=== PATIENT | male | born 1975 | race Two or more races ===

== ENCOUNTER 2023-08-18 18:38 | Emergency (ER) | payer SELFPAY ==
[~2023-08-18] VITALS: Ht 177.8 cm; Wt 97.2 kg
[2023-08-18] MEDS ORDERED: OMNIPAQUE 12mg/ml 500ml ORAL SOLUTION PO ONE (19:27)
[2023-08-18 19:38] LABS: Basophils # (auto) 0 10 ^3/uL (0-0.2); Basophils % (auto) 0.5 % (0.0-2.0); Eosinophils # (auto) 0.2 10 ^3/uL (0-0.8); Hematocrit 46.5 % (41.0-53.0); Hemoglobin 16.5 g/dL (13.5-17.5); Lymphocytes # (auto) 3.9 10 ^3/uL (0.4-5.4); Lymphocytes % (auto) 50.4 % (10.0-50.0); Mean Corpuscular Hemoglobin 33.9 pg (28.0-32.0); Mean Corpuscular Hgb Conc. 35.5 g/dL (32.0-36.0); Mean Corpuscular Volume 95.6 fL (80.0-100.0); Monocytes # (auto) 0.4 10 ^3/uL (0-1.3); Monocytes % (auto) 5.5 % (0.0-12.0); Neutrophils # (auto) 3.2 10 ^3/uL (1.6-8.6); Neutrophils % (auto) 41.6 % (37.0-80.0); Nucleated Red Blood Cells % 0.2 %; Red Blood Cells 4.86 10^6/uL (4.5-5.90); Red Cell Distribution Width 13.1 % (11.8-14.3); White Blood Cell 7.8 10^3/uL (4.4-10.8)
[2023-08-18 19:39] LABS: Urine Bacteria NONE SEEN /hpf (None Seen); Urine Blood TRACE /uL (Negative); Urine Clarity Clear (Clear); Urine Color Colorless (Yellow); Urine Protein, UAD Negative (Negative); Urine Specific Gravity 1.022 (1.001-1.035); Urine Urobilinogen Normal (Negative); Urine WBC <1 /hpf (0 - 3); Urine pH 5.5 (5.0-8.0)
[2023-08-18 19:44] LABS: Alanine Aminotransferase 53 U/L (7-40); Albumin 4.7 g/dL (3.2-4.8); Alkaline Phosphatase 74 U/L (46-116); Anion Gap 5 (5-15); Aspartate Aminotransferase 26 U/L (13-40); BUN/Creatinine Ratio 15.1 (10.0-20.0); Bilirubin, Total 0.5 mg/dL (0.2-1.0); Blood Urea Nitrogen 16 mg/dL (9-23); Calcium 9.3 mg/dL (8.7-10.4); Carbon Dioxide 29 mmol/L (20-30); Chloride 105 mmol/L (98-107); Glucose 124 mg/dL (74-106); Lipase 44 U/L (12-53); Potassium 3.8 mmol/L (3.5-5.1); Sodium 139 mmol/L (136-145); Total Protein 7.9 g/dL (5.7-8.2)
[2023-08-19] MEDS ORDERED: ZOFR4T PO (01:49)
[2023-08-19] MEDS ORDERED: CEPH500C PO (01:49)
[2023-08-19] MEDS ORDERED: HYDR-4902 PO (01:49)
[2023-08-19] MEDS ORDERED: KETOROLAC TROMETH 60MG/2ML VIAL IM ONE (02:00)
[2023-08-19] MEDS ORDERED: HYDROcodone-ACET 5/325MG TAB PO ONE (02:00)
[2023-08-19] MEDS ORDERED: ONDANSETRON ODT 4 MG TAB PO ONE (02:00)
[2023-08-19 02:44] VITALS: BP 125/61; PULSE 66; RESP 18; TEMP 98; O2SAT 96
== END 2023-08-19 02:44 | disposition home or self-care (01) ==
LOC: ER 18:38
DX: M47.896 Other spondylosis, lumbar region (principal); N40.0 Benign prostatic hyperplasia without lower urinary tract symptoms; R16.2 Hepatomegaly with splenomegaly, not elsewhere classified; K76.0 Fatty (change of) liver, not elsewhere classified; N30.90 Cystitis, unspecified without hematuria; R10.9 Unspecified abdominal pain; R07.89 Other chest pain; Z79.899 Other long term (current) drug therapy
CPT/HCPCS: 36415; 74176; 80053; 81001; 83690; 84484; 85025

== ENCOUNTER 2024-07-27 20:18 | Inpatient (IN) | payer MEDICAID ==
[~2024-07-27] VITALS: Ht 177.8 cm; Wt 98.6 kg
[~2024-07-27 20:18] MED LIST: CEPH500C PO; HYDR-4902 PO; ZOFR4T PO
[2024-07-27 20:39] LABS: Basophils # (auto) 0 10 ^3/uL (0-0.2); Basophils % (auto) 0.5 % (0.0-2.0); Eosinophils # (auto) 0.2 10 ^3/uL (0-0.8); Eosinophils % (auto) 2.4 % (0.0-7.0); Hematocrit 48.1 % (41.0-53.0); Hemoglobin 17.1 g/dL (13.5-17.5); Lymphocytes # (auto) 3.6 10 ^3/uL (0.4-5.4); Mean Corpuscular Hemoglobin 33.9 pg (28.0-32.0); Mean Corpuscular Hgb Conc. 35.6 g/dL (32.0-36.0); Mean Corpuscular Volume 95.2 fL (80.0-100.0); Monocytes # (auto) 0.6 10 ^3/uL (0-1.3); Monocytes % (auto) 7.8 % (0.0-12.0); Neutrophils # (auto) 2.7 10 ^3/uL (1.6-8.6); Neutrophils % (auto) 38.3 % (37.0-80.0); Nucleated Red Blood Cells % 0.2 %; Platelet Count (auto) 207 10^3/uL (140-450); Red Blood Cells 5.05 10^6/uL (4.5-5.90); Red Cell Distribution Width 12.6 % (11.8-14.3)
--- NOTE | 2024-07-27 20:55 | DVH ---
CHEST RADIOGRAPH Indication: CP Technique: Single frontal view of the chest was obtained Comparison: None FINDINGS: Lines and Tubes: None Lungs: No focal consolidation. Pleura: No effusion. No pneumothorax. Cardiomediastinal contours: Unremarkable Bones: No acute osseous abnormality. IMPRESSION: No acute cardiopulmonary disease.
[2024-07-27 21:04] LABS: INR 1.05 (0.9-1.15); Prothrombin Time 11.1 sec (9.3-11.8)
[2024-07-27 21:07] LABS: Albumin 4.6 g/dL (3.2-4.8); Alkaline Phosphatase 88 U/L (46-116); Anion Gap 5 (5-15); Aspartate Aminotransferase 40 U/L (13-40); BUN/Creatinine Ratio 10.4 (10.0-20.0); Blood Urea Nitrogen 10 mg/dL (9-23); Calcium 9.9 mg/dL (8.7-10.4); Carbon Dioxide 29 mmol/L (20-31); Chloride 103 mmol/L (98-107); Magnesium 2.1 mg/dL (1.6-2.6); Potassium 3.6 mmol/L (3.5-5.1); Sodium 137 mmol/L (136-145)
[2024-07-27 21:08] LABS: Bilirubin, Total 0.7 mg/dL (0.2-1.0); Total Protein 7.8 g/dL (5.7-8.2)
[2024-07-27 21:10] LABS: Alanine Aminotransferase 93 U/L (7-40); Glucose 138 mg/dL (74-106)
--- NOTE | 2024-07-27 21:14 | ED.PDOC ---
HPI Comments HPI PMHx: PSHx: Initial Vital Signs: Temp: 97.4F HR: 79 RR: 18 BP: 149/84 SpO2: 98% HPI: Poor Historian. 49-year-old male presents to emergency department for one-week history of intermittent left-sided chest pain with a day of the left shoulder left neck. No alleviating or precipitating factors. No other associated symptoms. Past Medcial History: Denies any Past Surgical History: Denies REVIEW OF SYSTEMS: CONSTITUTIONAL: Denies acute: fever, diaphoresis, chills, generalized weakness. HEAD: Denies acute: headache, photophobia Eyes: Denies acute: Double vision, vision loss, eye pain, eye discharge. EARS: Denies acute: tinnitus, hearing loss, ear discharge, ear pain, THROAT: Denies acute: sore throat, swelling, difficulty swallowing , pain with swallowing, change in voice. NECK: Denies acute: neck pain, neck swelling, stiff neck. HEART: Denies acute : palpitations, LUNGS: Denies acute: SOB, wheezing, cough, hemoptysis ABDOMEN: Denies acute: abdominal pain, Nausea, Vomiting, diarrhea, melena , hematemesis, hematochezia SKIN: Denies acute: rash, redness, lesions, itchiness. EXTREMITIES: Denies acute: calf pain, numbness, tingling, weakness, denies pain in extremity. Denies acute: Low back pain. Neuro: Denies acute: focal neurological deficit, motor or sensory focal neurological deficit, tremors, seizure like activity, confusion, dizziness, change in mental status, loss of bowel or bladder function, cauda equina like symptoms. : Denies acute: dysuria, hematuria, flank pain, increase in urinary frequency. PSYCH: Denies acute: hallucination, suicidal ideation, homicidal ideation. PHYSICAL EXAM: General: no acute distress, awake and alert. Head: normocephalic, atraumatic. Neck: supple, trachea is midline, no swelling. Throat: Normal phonation. Eyes:, no erythema, no purulent discharge, no proptosis, no icterus. Heart: regular rate, regular rhythm, no significant murmur appreciated. Lungs: no apparent respiratory distress, Able to speak in full sentences. No wheezing, no rhonchi, no crackles. No stridors Clear to auscultation bilaterally. Abdomen: non tender to palpation, non distended, soft, no guarding, no rebound, + bowel sounds. Neuro: Awake, Alert, oriented to name, self, situation, follows commands GCS=15. Speech is normal. Skin: no petechia, no purpura, no cyanosis, non-pale, not jaundice. Lower extremities: --no - Pitting edema no deformity, no focal swelling, no calf TTP. Makes eye contact. moves all four extremities. Face: no apparent facial droop. Ambulating in the ED independently. Chief Complaint: Chest Pain Time Seen by MD: 20:51 Primary Care Provider: ? Reviewed Notes: Nurses Notes, Allergies Allergies: Coded Allergies: NO KNOWN ALLERGIES (Unverified , 08/18/23) Home Meds Active Scripts Cephalexin Monohydrate (Cephalexin) 500 Mg Cap, 1 CAP PO QID for 10 Days, #40 CAP Prov:LINDA BASS Q BLOCK MACHINE OPERATOR 08/19/23 Ondansetron Odt 4MG Tab (ZOFRAN PO) 4 Mg Tb, 1 TAB PO Q8HPRN PRN, #10 TAB as needed for nausea vomitingODT TAB-DISSOLVE IN MOUTH, THEN SWALLOW Prov:BECK BASSA Q BLOCK MACHINE OPERATOR 08/19/23 Hydrocodone-Acetaminophen (Hydrocodone Bitartrate/AC 5-325 mg) 1 Tab Tab, 1 TAB PO Q6HPRN PRN, #8 TAB as needed fr pain Prov:BECK BASSA Q BLOCK MACHINE OPERATOR 08/19/23 Information Source: Patient Mode of Arrival: Ambulatory Past Medical History PAST MEDICAL HISTORY: Denies Surgical History: Denies all surgeries Was a procedure done? Was a procedure done?: No X-Ray, Labs, Meds, VS Vital Signs Date Time Temp Pulse Resp B/P (MAP) Pulse Ox O2 Delivery O2 Flow Rate FiO2 07/27/24 23:44 61 07/27/24 21:40 67 07/27/24 20:24 79 07/27/24 20:24 97.4 77 18 149/84 (105) 98 Lab Test 07/27/24 23:21 07/27/24 21:26 07/27/24 20:25 Range/Units Troponin I High Sensitivity 4 3 L 4 </=54 ng/L Triglycerides Level 403 H < 150 mg/dL Cholesterol Level 277 H < 200 mg/dL LDL Cholesterol < 100 mg/dL HDL Cholesterol 40 40-59 mg/dL Thyroid Stimulating Hormone (TSH) 3.97 0.55-4.78 uIU/mL White Blood Count 7.0 4.4-10.8 10^3/uL Red Blood Count 5.05 4.5-5.90 10^6/uL Hemoglobin 17.1 13.5-17.5 g/dL Hematocrit 48.1 41.0-53.0 % Mean Corpuscular Volume 95.2 80.0-100.0 fL Mean Corpuscular Hemoglobin 33.9 H 28.0-32.0 pg Mean Corpuscular Hemoglobin Concent 35.6 32.0-36.0 g/dL Red Cell Distribution Width 12.6 11.8-14.3 % Platelet Count 207 140-450 10^3/uL Mean Platelet Volume 8.7 6.9-10.8 fL Neutrophils (%) (Auto) 38.3 37.0-80.0 % Lymphocytes (%) (Auto) 51.0 H 10.0-50.0 % Monocytes (%) (Auto) 7.8 0.0-12.0 % Eosinophils (%) (Auto) 2.4 0.0-7.0 % Basophils (%) (Auto) 0.5 0.0-2.0 % Neutrophils # (Auto) 2.7 1.6-8.6 10 ^3/uL Lymphocytes # (Auto) 3.6 0.4-5.4 10 ^3/uL Monocytes # (Auto) 0.6 0-1.3 10 ^3/uL Eosinophils # (Auto) 0.2 0-0.8 10 ^3/uL Basophils # (Auto) 0 0-0.2 10 ^3/uL Nucleated Red Blood Cells 0.2 % Prothrombin Time 11.1 9.3-11.8 sec Prothrombin Time INR 1.05 0.9-1.15 Activated Partial Thromboplast Time 27.0 24.5-34.5 SEC Sodium Level 137 136-145 mmol/L Potassium Level 3.6 3.5-5.1 mmol/L Chloride Level 103 98-107 mmol/L Carbon Dioxide Level 29 20-31 mmol/L Anion Gap 5 5-15 Blood Urea Nitrogen 10 9-23 mg/dL Creatinine 0.96 0.700-1.30 mg/dL Glomerular Filtration Rate Calc 98 >90 mL/min BUN/Creatinine Ratio 10.4 10.0-20.0 Serum Glucose 138 H 74-106 mg/dL Hemoglobin A1c 6.0 H <5.7 % A1C Calcium Level 9.9 8.7-10.4 mg/dL Magnesium Level 2.1 1.6-2.6 mg/dL Total Bilirubin 0.7 0.2-1.0 mg/dL Aspartate Amino Transferase (AST) 40 13-40 U/L Alanine Aminotransferase (ALT) 93 H 7-40 U/L Alkaline Phosphatase 88 46-116 U/L B-Type Natriuretic Peptide 1.01 0-100 pg/mL Total Protein 7.8 5.7-8.2 g/dL Albumin 4.6 3.2-4.8 g/dL [place] [id number] Ph: [phone] DIAGNOSTIC IMAGING Diagnostic Imaging Report : [id number] Signed PATIENT: MARGIE MAYEN ACCT: [id number] UNIT: [id number] : 1975 LOC: ER ROOM / BED: / AGE / SEX: 49 / M ADM STATUS: REG ER SERVICE 24 ORDERING PHYSICIAN: MOSHE VARELA MD PROCEDURE(s): CXRP - CHEST PORTABLE REASON: CP ORDER NUMBER(s): [id number], ACCESSION NUMBER(s): [id number] CHEST RADIOGRAPH Indication: CP Technique: Single frontal view of the chest was obtained Comparison: None FINDINGS: Lines and Tubes: None Lungs: No focal consolidation. Pleura: No effusion. No pneumothorax. Cardiomediastinal contours: Unremarkable Bones: No acute osseous abnormality. IMPRESSION: No acute cardiopulmonary disease. ATED BY: EBONY HIDALGO DO DICTATED DATE/TIME: 07/27/242052 SIGNED BY: EBONY HIDALGO DO SIGNED DATE/TIME: 07/27/242052 CC: Reevaluation 1ST: Unchanged Patient Education/Counseling: Diagnosis, Treatment Family Education/Counseling: Diagnosis, Treatment Departure 1 Departure Time of Disposition: 21:36 Impression: Primary Impression: Chest pain Additional Impression: Abnormal T wave present on electrocardiography Disposition: ADMITTED INPATIENT Admit to: Tele Condition: Guarded Discharged With: Self Critical Care Note Critical Care Time?: No I personally scribed for CHERRIE ENAMORADO DO ([email or web address]) on 07/27/24 at 21:14. Electronically submitted by Thor Chow ([email or web address]). I personally scribed for CHERRIE ENAMORADO DO ([email or web address]) on 07/27/24 at 21:17. Electronically submitted by Kevon Allen ([email or web address]). I personally scribed for CHERRIE ENAMORADO DO ([email or web address]) on 07/28/24 at 01:50. Electronically submitted by Kevon Allen ([email or web address]). CHERRIE ENAMORADO DO Jul 27, 2024 21:14
[2024-07-28] MEDS ORDERED: NITROGLYCERIN 0.4 MG SL TAB SL PRN
--- NOTE | 2024-07-28 00:03 | DVHHPRES ---
History of Present Illness Resident Creating Document: RAMILA ELIZABETH RESIDENT History of Present Illness This is a 49 years old male with past medical history of hyperlipidemia presented to the ED with a chief complaint of intermittent chest pain and shortness of breath for last 4 days prior to this admission. The patient states that chest pain started 4 days ago which was intermittent in nature, heaviness in the chest, 10/10 radiate to the jaw and left shoulder partially relieved by taking aspirin and aggravated with exertion and associated with shortness of breath and cough. He also mentioned for last 4 months he has frequent episodes of chest pain that was partially relieved by taking aspirin. The patient has a strong family history of coronary artery disease. The patient denies headache, blurry of vision, dizziness, diaphoresis, abdominal pain, nausea, vomiting, dysuria, hematuria or any change in bowel and bladder habit. Past Medical History Hyperlipidemia Past Surgical History None Family History Family history significant for coronary artery disease Past Social History Lives with family Nonsmoker, nonalcoholic and never tried any drugs. Review of Systems Constitutional: No: Fever, Chills, Sweats, Weakness, Malaise, Other Eyes: No: Pain, Vision change, Conjunctivae inflammation, Eyelid inflammation, Other, Redness ENT: No: Ear pain, Ear discharge, Nose pain, Nose discharge, Nose congestion, Mouth pain, Mouth swelling, Throat pain, Throat swelling, Other Respiratory: Shortness of breath, SOB with excertion; No: Cough, Dry, Wheezing, Hemoptysis, Pleuritic Pain, Sputum, Wheezing, Other Cardiovascular: Chest Pain; No: Palpitations, Orthopnea, Paroxysmal Noc. Dyspnea, Edema, Lt Headedness, Other Gastrointestinal: No: Nausea, Vomiting, Abdominal Pain, Diarrhea, Constipation, Melena, Hematochezia, Other Genitourinary: No Dysuria, No Frequency, No Incontinence, No Hematuria, No Retention, No Other Musculoskeletal: No: other, neck pain, shoulder pain, arm pain, back pain, hand pain, leg pain, foot pain Skin: No: Rash, Lesions, Jaundice, Bruising, Other Neurological: No: Weakness, Numbness, Incoordination, Change in speech, Con fusion, Seizures, Other Allergies: Coded Allergies: NO KNOWN ALLERGIES (Unverified , 08/18/23) Medications Current Medications Medications Dose Ordered Sig/[facility] Route Start Time Stop Time Status Last Admin Dose Admin Nitroglycerin 0.4 mg Q5MINP PRN SL 07/28/24 00:00 UNV Morphine Sulfate 2 mg Q30M PRN IV 07/28/24 00:00 UNV Exam Vital Signs Vital Signs Date Time Temp Pulse Resp B/P (MAP) Pulse Ox O2 Delivery O2 Flow Rate FiO2 07/27/24 23:44 61 07/27/24 20:24 97.4 18 149/84 (105) 98 Exam Physical examination: General Appearance: Alert, Oriented X3, Cooperative, No acute distress HEENT: Atraumatic, PERRLA, EOMI, Mucous membrane moist/pink Respiratory: Clear to auscultation, Normal air movement Cardiovascular: Regular rate, Normal S1, Normal S2, No murmurs, no chest wall tenderness Abdominal: Normal bowel sounds, Soft, No tenderness, No hepatospenomegaly, No masses Extremities: No clubbing, No cyanosis, No edema, Normal pulses, No tenderness/swelling Skin: No rashes, No breakdown, No significant lesion Neuro: Normal gait, Normal speech, Strength at 5/5 X4 ext, Normal tone, Sensation intact, grossly intact cranial nerves. Psych/Mental Status: Mental status NL, Mood NL Labs/Xrays Labs Test 07/27/24 23:21 07/27/24 20:25 Range/Units Troponin I High Sensitivity 4 </=54 ng/L White Blood Count 7.0 4.4-10.8 10^3/uL Red Blood Count 5.05 4.5-5.90 10^6/uL Hemoglobin 17.1 13.5-17.5 g/dL Hematocrit 48.1 41.0-53.0 % Mean Corpuscular Volume 95.2 80.0-100.0 fL Mean Corpuscular Hemoglobin 33.9 H 28.0-32.0 pg Mean Corpuscular Hemoglobin Concent 35.6 32.0-36.0 g/dL Red Cell Distribution Width 12.6 11.8-14.3 % Platelet Count 207 140-450 10^3/uL Mean Platelet Volume 8.7 6.9-10.8 fL Neutrophils (%) (Auto) 38.3 37.0-80.0 % Lymphocytes (%) (Auto) 51.0 H 10.0-50.0 % Monocytes (%) (Auto) 7.8 0.0-12.0 % Eosinophils (%) (Auto) 2.4 0.0-7.0 % Basophils (%) (Auto) 0.5 0.0-2.0 % Neutrophils # (Auto) 2.7 1.6-8.6 10 ^3/uL Lymphocytes # (Auto) 3.6 0.4-5.4 10 ^3/uL Monocytes # (Auto) 0.6 0-1.3 10 ^3/uL Eosinophils # (Auto) 0.2 0-0.8 10 ^3/uL Basophils # (Auto) 0 0-0.2 10 ^3/uL Nucleated Red Blood Cells 0.2 % Prothrombin Time 11.1 9.3-11.8 sec Prothrombin Time INR 1.05 0.9-1.15 Activated Partial Thromboplast Time 27.0 24.5-34.5 SEC Sodium Level 137 136-145 mmol/L Potassium Level 3.6 3.5-5.1 mmol/L Chloride Level 103 98-107 mmol/L Carbon Dioxide Level 29 20-31 mmol/L Anion Gap 5 5-15 Blood Urea Nitrogen 10 9-23 mg/dL Creatinine 0.96 0.700-1.30 mg/dL Glomerular Filtration Rate Calc 98 >90 mL/min BUN/Creatinine Ratio 10.4 10.0-20.0 Serum Glucose 138 H 74-106 mg/dL Calcium Level 9.9 8.7-10.4 mg/dL Magnesium Level 2.1 1.6-2.6 mg/dL Total Bilirubin 0.7 0.2-1.0 mg/dL Aspartate Amino Transferase (AST) 40 13-40 U/L Alanine Aminotransferase (ALT) 93 H 7-40 U/L Alkaline Phosphatase 88 46-116 U/L B-Type Natriuretic Peptide 1.01 0-100 pg/mL Total Protein 7.8 5.7-8.2 g/dL Albumin 4.6 3.2-4.8 g/dL Assessment/Plan Assessment/Plan Assessment and plan: # Chest pain rule out ACS - Initial 12 lead EKG revealed T inversion in lead 2 and avf, LVH and troponin trends were unremarkable - Chest xray revealed no acute cardiopulmonary disease. - Ordered Echo, HbA1C and lipid panel - Consulted Cardiology for possible stress test - Aspirin 81 mg p.o. daily and atorvastatin 40 mg at HS # Rule out GERD - Protonix 40 mg po daily. # Hyperlipidemia - Lipid panel demonstrated elevated TG and total cholesterol - Atorvastatin 40 mg at HS # Prediabetic, hemoglobin A1c 6% - Counseled patient regarding low carb diet ,lifestyle modification and physical exercise # DVT prophylaxis - Not recommended as patient is mobile. Goal of care discussed with the patient for more than 20 minutes full code Plan discussed with Dr. Doyle Plan discussed with: Patient, Other My Orders Orders - RAMILA ELIZABETH RESIDENT Procedure Category Date Status Time Admit ADMIT 07/27/24 Transmitted 23:58 Nitroglycerin PHA 07/28/24 Logged Sublingual (Ntrostat 00:00 Morphine Sulfate PHA 07/28/24 Logged Injection 00:00 Roll Inspector For ROGERIO 07/27/24 In Process 24 Hours 23:58 Lipid Panel LAB 07/28/24 Transmitted 00:01 Echo 2d Mode Cardiac US 07/28/24 Transmitted DOP 00:01 Date of Service: Jul 27, 2024 Billing Provider: YEHUDA DOYLE MD Common Visit Codes: [id number] INP/OBS CARE (HIGH) RAMILA ELIZABETH RESIDENT Jul 28, 2024 00:03 YEHUDA DOYLE MD Jul 28, 2024 17:58
[2024-07-28 01:38] LABS: Cholesterol 277 mg/dL (< 200); HDL Cholesterol 40 mg/dL (40-59); Triglycerides 403 mg/dL (< 150)
[2024-07-28] MEDS: NITROGLYCERIN 0.4 MG SL TAB SL ONE (04:43)
[2024-07-28] MEDS: ASPirin 325 MG TAB PO ONE (04:43)
[2024-07-28] MEDS: MORPHINE SULFATE INJ 2 MG/ml SYRG IV PRN (04:44)
[2024-07-28] MEDS: ONDANSETRON HCL 4 MG/2 ML VIAL IV ONE (04:44)
[2024-07-28 06:46] VITALS: PULSE 69; RESP 16; O2SAT 98
[2024-07-28] MEDS: ASPirin-EC 81 mg tab PO SCH (08:29)
--- NOTE | 2024-07-28 09:33 | ECG ---
[facility] Test Date: 2024-07-27 Test Time: 20:24:22 Pat Name: MARGIE MAYEN Department: ED Room: 0276T Gender: M Tape Librarian: ILEANA : 1975 Requested By: MOSHE VARELA Order Number: [id number] Reading MD: Hal Owen Measurements Intervals [place] Rate: 79 P: 34 [place]: 148 QRS: 84 QRSD: 99 T: 42 QT: 364 QTc: 418 Interpretive Statements Sinus rhythm Probable left ventricular hypertrophy ST elev, probable normal early repol pattern Electronically Signed On 07-29-2024 10:21:16 PST by Hal Owen Please click the below link to view image of tracing.
--- NOTE | 2024-07-28 09:33 | ECG ---
[facility] Test Date: 2024-07-27 Test Time: 21:40:24 Pat Name: MARGIE MAYEN Department: ED Room: 0276T Gender: M Vp Of Digital Marketing: DELLA : 1975 Requested By: MOSHE VARELA Order Number: [id number] Reading MD: Hal Owen Measurements Intervals [place] Rate: 67 P: 6 [place]: 156 QRS: 96 QRSD: 105 T: -7 QT: 389 QTc: 411 Interpretive Statements Sinus rhythm Borderline right axis deviation Probable left ventricular hypertrophy Nonspecific T abnormalities, inferior leads ST elevation, consider lateral injury Electronically Signed On 07-29-2024 10:21:44 PST by Hal Owen Please click the below link to view image of tracing.
--- NOTE | 2024-07-28 09:34 | ECG ---
[facility] Test Date: 2024-07-27 Test Time: 23:44:02 Pat Name: MARGIE MAYEN Department: ED Room: 0276T Gender: M Elementary Vocal Music Teacher: DELLA : 1975 Requested By: MOSHE VARELA Order Number: [id number] Reading MD: Hal Owen Measurements Intervals [place] Rate: 61 P: 9 [place]: 162 QRS: 80 QRSD: 102 T: 43 QT: 406 QTc: 409 Interpretive Statements Sinus rhythm Probable left ventricular hypertrophy Electronically Signed On 07-29-2024 10:21:54 PST by Hal Owen Please click the below link to view image of tracing.
[2024-07-28] MEDS: PANTOPRAZOLE 40 MG TAB PO SCH (10:24)
[2024-07-28 11:22] VITALS: BP 161/86; PULSE 70; RESP 17
--- NOTE | 2024-07-28 14:23 | DVHINCON2 ---
Date Seen: Jul 28, 2024 Referring Physician MD Cammy resident Reason for Consultation Acute chest pain History of Present Illness This is a 49-year-old male patient who presents to the emergency room with multiple chief complaints. The patient reports that initially he started experiencing groin and epigastric pain approximately one week ago since then he has reported chest pain as well as shoulder and neck pain. He describes the pain as unprovoked, intermittent, pressure-like in nature, left-sided with radiation to his left shoulder and left neck area. He comes to the emergency room for further evaluation. Initial twelve lead electrocardiogram reveals normal sinus rhythm without any significant ST segment changes. Initial serial troponin levels have been negative. Significant past medical history includes dyslipidemia and prediabetes. The patient denies any previous cardiac workup. Past Medical History Past medical history reviewed. No other significant than mentioned above. Past Surgical History Denies all previous surgeries Family History Family history reviewed. Social History Denies the use of tobacco, alcohol or illicit drugs. Allergies: Coded Allergies: NO KNOWN ALLERGIES (Unverified , 08/18/23) Home Meds Active Scripts Cephalexin Monohydrate (Cephalexin) 500 Mg Cap, 1 CAP PO QID for 10 Days, #40 CAP Prov:BASSSANDRAALDA Q CATEGORY CONSULTANT 08/19/23 Ondansetron Odt 4MG Tab (ZOFRAN PO) 4 Mg Tb, 1 TAB PO Q8HPRN PRN, #10 TAB as needed for nausea vomitingODT TAB-DISSOLVE IN MOUTH, THEN SWALLOW Prov:BECK BASSA Q CATEGORY CONSULTANT 08/19/23 Hydrocodone-Acetaminophen (Hydrocodone Bitartrate/AC 5-325 mg) 1 Tab Tab, 1 TAB PO Q6HPRN PRN, #8 TAB as needed fr pain Prov:BASSSANDRAALDA Q CATEGORY CONSULTANT 08/19/23 Home Meds The patient denies taking any prescribed medications Current Medications Current Medications Medications (Trade) Dose Ordered Sig/Lorenzo Route PRN Reason Start Time Stop Time Status Last Admin Nitroglycerin (Ntrostat Sublingual) 0.4 mg Q5MINP PRN SL FOR CHEST PAIN 07/28/24 00:00 Morphine Sulfate 2 mg Q30M PRN IV FOR CHEST PAIN 07/28/24 00:00 07/28/24 04:44 Pantoprazole Sodium (Protonix Tablet) 40 mg DAILY PO 1/8/25 10:00 07/28/24 10:24 Aspirin (Ecotrin Enteric Coated Tablet) 81 mg DAILY@BREAKFAST PO 07/28/24 08:00 07/28/24 08:29 Atorvastatin Calcium (Lipitor) 40 mg HS PO 07/28/24 22:00 Review of Systems Constitutional: No symptom reported Ears, Nose, & Throat: No symptom reported Eyes: No symptom reported Neurological: No symptoms reported Pulmonary/Respiratory: No symptoms reported Cardiovascular: Chest pain Gastrointestinal: Abdominal pain Genitourinary: No symptom reported Musculoskeletal: Left shoulder and neck pain Skin: No symptom reported Psychiatric: No symptom reported Endocrine: No symptom reported Hematologic/Lymphatic: No symptom reported Vital Signs Vital Signs Date Time Temp Pulse Resp B/P (MAP) Pulse Ox O2 Delivery O2 Flow Rate FiO2 07/28/24 14:05 98.0 73 18 121/97 (105) 98 98.0 07/28/24 06:46 Room Air* 0 21 Physical Exam General Appearance: Cooperative. Well-developed. Well-nourished. No acute distress. Pulmonary/Respiratory: Clear, bilateral breaths sounds. Cardiovascular/Chest: Regular rate and rhythm. Peripheral Pulses: 2+ Radial (R). 2+ Radial (L). 2+ Pedal (R). 2+ Pedal (L) Abdominal Exam: Normal bowel sounds. Ankle Exam: Negative ankle edema Lower extremities: Negative lower extremity edema Neuro/Mental Status: A/OX4, coherent. Thoughts/Psych: Normal thought pattern. Appropriate mood and affect. Good judgment and insight. Appearance: No acute distress. Skin Exam: Normal inspection. Normal color. Warm and dry. Labs/Diagnostic Data Labs Test 07/28/24 11:23 07/27/24 23:21 07/27/24 20:25 Range/Units Plasma/Serum Blood Alcohol < 3.0 <10 mg/dL Troponin I High Sensitivity 4 </=54 ng/L Triglycerides Level 403 H < 150 mg/dL Cholesterol Level 277 H < 200 mg/dL LDL Cholesterol < 100 mg/dL HDL Cholesterol 40 40-59 mg/dL Thyroid Stimulating Hormone (TSH) 3.97 0.55-4.78 uIU/mL White Blood Count 7.0 4.4-10.8 10^3/uL Red Blood Count 5.05 4.5-5.90 10^6/uL Hemoglobin 17.1 13.5-17.5 g/dL Hematocrit 48.1 41.0-53.0 % Mean Corpuscular Volume 95.2 80.0-100.0 fL Mean Corpuscular Hemoglobin 33.9 H 28.0-32.0 pg Mean Corpuscular Hemoglobin Concent 35.6 32.0-36.0 g/dL Red Cell Distribution Width 12.6 11.8-14.3 % Platelet Count 207 140-450 10^3/uL Mean Platelet Volume 8.7 6.9-10.8 fL Neutrophils (%) (Auto) 38.3 37.0-80.0 % Lymphocytes (%) (Auto) 51.0 H 10.0-50.0 % Monocytes (%) (Auto) 7.8 0.0-12.0 % Eosinophils (%) (Auto) 2.4 0.0-7.0 % Basophils (%) (Auto) 0.5 0.0-2.0 % Neutrophils # (Auto) 2.7 1.6-8.6 10 ^3/uL Lymphocytes # (Auto) 3.6 0.4-5.4 10 ^3/uL Monocytes # (Auto) 0.6 0-1.3 10 ^3/uL Eosinophils # (Auto) 0.2 0-0.8 10 ^3/uL Basophils # (Auto) 0 0-0.2 10 ^3/uL Nucleated Red Blood Cells 0.2 % Prothrombin Time 11.1 9.3-11.8 sec Prothrombin Time INR 1.05 0.9-1.15 Activated Partial Thromboplast Time 27.0 24.5-34.5 SEC Sodium Level 137 136-145 mmol/L Potassium Level 3.6 3.5-5.1 mmol/L Chloride Level 103 98-107 mmol/L Carbon Dioxide Level 29 20-31 mmol/L Anion Gap 5 5-15 Blood Urea Nitrogen 10 9-23 mg/dL Creatinine 0.96 0.700-1.30 mg/dL Glomerular Filtration Rate Calc 98 >90 mL/min BUN/Creatinine Ratio 10.4 10.0-20.0 Serum Glucose 138 H 74-106 mg/dL Hemoglobin A1c 6.0 H <5.7 % A1C Calcium Level 9.9 8.7-10.4 mg/dL Magnesium Level 2.1 1.6-2.6 mg/dL Total Bilirubin 0.7 0.2-1.0 mg/dL Aspartate Amino Transferase (AST) 40 13-40 U/L Alanine Aminotransferase (ALT) 93 H 7-40 U/L Alkaline Phosphatase 88 46-116 U/L B-Type Natriuretic Peptide 1.01 0-100 pg/mL Total Protein 7.8 5.7-8.2 g/dL Albumin 4.6 3.2-4.8 g/dL Assessment Chest pain, rule out coronary ischemia Dyslipidemia Prediabetes, newly diagnosed Obesity Plan/Recommendation We will continue with the following plan/recommendations (Dr. Regan): The patient was seen and examined in the emergency room with . The patient was taken to the stress lab where he underwent a stress test which revealed no ST segment changes (see stress test report for full details). He denies any chest pain or shortness of breath during stress test. We will recommend for the patient to continue with the aggressive lipid-lowering agent. Dietary and lifestyle modifications discussed with patient. In the setting of an unremarkable echocardiogram, there is no further inpatient cardiac workup indicated this time. Thank you for allowing us to care for this patient. Please call with any questions or concerns. Critical care time spent: 40 minutes This medical document was created using an electronic medical record system with voice recognition software and computerized dictation system. Although this document has been carefully reviewed, there might still be some phonetic and typographical errors. Occasional wrong-word or ``sound-alike substitutions may have occurred due to the inherent limitations of voice recognition software. These areas are purely typographical due to imperfections of the software programs and do not reflect any compromise in the patient's medical care. Please read the chart carefully and recognize, using context, where these substitutions have occurred. Plan discussed with: Patient NYHA Physical activity limitations: NA Date of Service: Jul 28, 2024 Billing Provider: JOSH REGAN MD Cardiology Common Codes: 70917-AVDHSSH INP/OBS CARE (High) Cardiology Consultation Codes: 40003-[id number] CONSULT <45MIN TONYA BATEMAN Jul 28, 2024 14:23
--- NOTE | 2024-07-28 14:25 | DVHCARD ---
Cardiology Stress Test [place] Treadmill Stress Test [place] Referring MD: VIRAL Corbett Protocol: Naveen (without cardiolite) Reason for referral: Chest Pain Target heart Rate:@85%: 146 Percent MPHR: 172 METS: 10.4 Resting Heart rate: 70 Resting Blood Pressure: 161/86 Exercise Heart Rate: 157 Exercise Blood Pressure: 191/96 Baseline EKG: Normal sinus rhythm Stress EKG: Sinus tachycardia Functional Capacity: Good Normal Heart Rate Response: Adequate Blood Pressure Response: Hypertensive Clinical response: Non-ischemic Arrhythmia?: No Cardiolite Injected?: No ST-T Changes: Non/Minimal Probability of Inducible Ische: Low Date of Service: Jul 28, 2024 Billing Provider: JOSH REGAN MD Cardiology Common Codes: PROCEDURE ONLY Treadmill w/o Cardiolite: [id number], INTERP, RPT TONYA CORBETT Jul 28, 2024 14:25
--- NOTE | 2024-07-28 16:47 | DVHPN2 ---
Subjective Patient continues to report having substernal chest discomfort with radiation to his back at left shoulder and arm. Reviewed: Care Plan, H&P, Labs, Medications Changes from previous H/P or p: No Changes General: Per HPI Eyes: No Pain, No Vision change, No Conjunctivae inflammation, No Eyelid inflammation, No Other, No Redness ENT: No Ear pain, No Ear discharge, No Nose pain, No Nose discharge, No Nose congestion, No Mouth pain, No Mouth swelling, No Throat pain, No Throat swelling, No Other Cardiovascular: Chest Pain; No Palpitations, No Orthopnea, No Paroxysmal Noc. Dyspnea, No Edema, No Lt Headedness, No Other Respiratory: No Cough, No Dry; Shortness of breath, SOB with excertion; No Wheezing, No Hemoptysis, No Pleuritic Pain, No Sputum, No Other Gastrointestinal: No Nausea, No Vomiting, No Abdominal Pain, No Diarrhea, No Constipation, No Melena, No Hematochezia, No Other Genitourinary: No Dysuria, No Frequency, No Incontinence, No Hematuria, No Retention, No Other Musculoskeletal: No other, No neck pain, No shoulder pain, No arm pain, No back pain, No hand pain, No leg pain, No foot pain Skin: No Rash, No Lesions, No Jaundice, No Bruising, No Other Objective Vitals Vital Signs Date Time Temp Pulse Resp B/P (MAP) Pulse Ox O2 Delivery O2 Flow Rate FiO2 07/28/24 16:07 97.8 64 18 146/86 (106) 100 97.8 07/28/24 06:46 Room Air* 0 21 General Appearance: Alert, Oriented X3, Cooperative, mild distress HEENT: Atraumatic, PERRLA Lungs: Clear to auscultation, Normal air movement Cardiovascular: Normal S1, Normal S2 Musculoskeletal: Normal sensory function, Normal motor function Extremities: No clubbing, No cyanosis, No edema, Normal pulses, No tenderness/swelling Neuro: Normal gait, Normal speech Psych/Mental Status: Mental status NL, Mood NL Medications Current Medications Medications Dose Ordered Sig/Lorenzo Route Start Time Stop Time Status Last Admin Dose Admin Nitroglycerin 0.4 mg Q5MINP PRN SL 07/28/24 00:00 Morphine Sulfate 2 mg Q30M PRN IV 07/28/24 00:00 07/28/24 04:44 2 MG Pantoprazole Sodium 40 mg DAILY PO 07/28/24 10:00 07/28/24 10:24 40 MG Aspirin 81 mg DAILY@BREAKFAST PO 07/28/24 08:00 07/28/24 08:29 81 MG Atorvastatin Calcium 80 mg HS PO 07/28/24 22:00 Laboratory Results Laboratory Tests 07/27/24 20:25 Chemistry Test 07/27/24 20:25 Albumin 4.6 g/dL (3.2-4.8) Calcium Level 9.9 mg/dL (8.7-10.4) Magnesium Level 2.1 mg/dL (1.6-2.6) Total Protein 7.8 g/dL (5.7-8.2) Coagulation Test 07/27/24 20: Prothrombin Time 11.1 sec (9.3-11.8) Prothrombin Time INR 1.05 (0.9-1.15) Activated Partial Thromboplast Time 27.0 SEC (24.5-34.5) Lipid panel Test 07/27/24 23:21 07/28/24 11:23 Cholesterol Level 277 mg/dL (< 200) H HDL Cholesterol 40 mg/dL (40-59) Triglycerides Level 403 mg/dL (< 150) H Lipase 52 U/L (12-53) Cardiac Markers Test 07/27/24 20:25 B-Type Natriuretic Peptide 1.01 pg/mL (0-100) LFT Test 07/27/24 20:25 Alanine Aminotransferase (ALT) 93 U/L (7-40) H Alkaline Phosphatase 88 U/L (46-116) Aspartate Amino Transferase (AST) 40 U/L (13-40) Total Bilirubin 0.7 mg/dL (0.2-1.0) HgA1c, TSH Test 07/27/24 20:25 07/27/24 23:21 Hemoglobin A1c 6.0 % A1C (<5.7) H Thyroid Stimulating Hormone (TSH) 3.97 uIU/mL (0.55-4.78) Labs and/or images reviewed: Labs reviewed by me, Image(s) reviewed by me Assessment/Plan Assessment/Plan Impression: -rule out ACS -severe dyslipidemia -accelerated hypertension Plan: -ACS protocol -cardiology consultation: Echocardiogram pending, stress test pending -continue atorvastatin 80 mg q.h.s. -pain management -further course of care per Cardiology recommendations -check lipase Total time spent with patient discussing and formulating plan of care: 35 minutes. This medical document was created using an electronic medical record system with [employer] dictation system. Although this document has been carefully reviewed, there may still be some phonetic and typographical errors. These areas are purely typographical due to imperfections of the software programs, and do not reflect any compromise in the patient's medical care. Plan discussed with: Patient, Other (RN) My Orders Orders - ANGELINA HAMM NP Procedure Category Date Status Time Atorvastatin (Lipitor) PHA 07/28/24 In Process 22:00 Cardiac DIET 07/28/24 Transmitted Diet-2gna,Lofat,Lochol [facility] Screen LAB 07/28/24 Verified 16:43 Date of Service: Jul 28, 2024 Billing Provider: ANGELINA HAMM NP Common Visit Codes: [id number] INP/OBS CARE(HIGH) ANGELINA HAMM NP Jul 28, 2024 16:47
[2024-07-28 17:30] VITALS: PULSE 69; RESP 14; O2SAT 97
[2024-07-28 18:08] LABS: Amphetamine Screen, Urine Neg (NEGATIVE); Barbiturate Scree,Urine Neg (NEGATIVE); Benzodiazephine Screen, Urine Neg (NEGATIVE); Cannabinoid Screen, Urine Neg (NEGATIVE); Cocaine Screen, Urine Neg (NEGATIVE); Opiate Scree,Urine Neg (NEGATIVE); Phencyclidine Screen, Urine Neg (NEGATIVE)
[2024-07-28 18:48] VITALS: BP 132/79; PULSE 69; RESP 18; TEMP 97.9; O2SAT 100
[2024-07-28 20:00] VITALS: PULSE 80; RESP 18; O2SAT 96
[2024-07-28 21:00] VITALS: BP_SYST 130; BP_SYST 158; BP_DIAS 73; PULSE 68; RESP 16; TEMP 97.6; O2SAT 91; O2SAT 99
[2024-07-28] MEDS ORDERED: ATORVASTATIN 20 MG TAB PO SCH (22:00)
[2024-07-28] MEDS: ATORVASTATIN 20 MG TAB PO SCH (23:25)
[2024-07-29] VITALS (8 sets, daily range): BP systolic 115–124; BP diastolic 60–69; PULSE 60–69; RESP 14–18; TEMP 36.6; O2SAT 94–98
[2024-07-29 10:40] LABS: Hepatitis B Surface Antigen Negative (Negative)
[2024-07-29 11:50] LABS: Hepatitis C Antibody Negative (Negative)
[2024-07-29] MEDS ORDERED: ATOR20TA50 PO (13:27)
--- NOTE | 2024-07-29 13:56 | DVHSR ---
APPROVED REPORT EXAM: Two-dimensional and M-mode echocardiogram with Doppler and color Doppler. Blood Pressure: 116/60 mmHg INDICATION Chest Pain RISK FACTORS Height: 5'10, Weight: 217 DIMENSIONS LVDd4.9 (3.8-5.7cm)LA (2D)3.1 (1.9-4.0cm)Aortic Root3.4 (2.0-3.7cm) LVDs3.1 (2.5-4.0cm)LA (MM) (1.9-4.0cm)Aortic Cusp Exc2.1 (1.5-2.0cm) EF (%) 60.0 (55-70%)Rt. Atrium3.3 (1.9-4.0cm)Asc. Aorta2.7 cm IVSd1.0 (0.7-1.1cm)RV (D) (1.8-2.4cm) PWd1.0 (0.7-1.1cm) Mitral Valve MitralMitral Stenosis E wave0.54m/sMV Mean GR.mmHg A wave0.75m/sMV Peak GR.mmHg E/A ratio0.72D MVAcm2 DECEL [id number] 1/2 Tim[place] Aortic Valve Aortic ValveAortic Stenosis V11.09m/Dafne Mean GR.4mmHg V21.26m/Dafne Peak GR.6mmHg LVOT Diameter2.3 (1.8-2.4cm)Doppler AVA3.59cm2 Pulmonic Valve V21.18m/s LEFT VENTRICLE Normal left ventricular size. Wall thickness is normal. Ejection fraction is normal and is estimate d at 60%. There is no regional wall motion abnormalities. Diastolic function appears to be preserve d. E to E prime ratio is in normal range. RIGHT VENTRICLE The right ventricle is of normal size. Right ventricular systolic function is normal. ATRIA Both atria are of normal size. MITRAL VALVE Normal structure and function. No significant mitral regurgitation. PULMONIC VALVE Likely normal. TRICUSPID VALVE Normal structure and function. There is a trace tricuspid regurgitation. PA systolic pressure could not be estimated. AORTIC VALVE Normal structure and function. GREAT VESSELS The aortic root and proximal ascending aorta are of normal size. PERICARDIAL EFFUSION No pericardial effusion. IVC is of normal size and collapses normally with inspiration. Conclusion Normal left ventricular size and systolic function. Ejection fraction is estimated at 60%. Normal right ventricular size systolic function. No hemodynamically significant valvular disease. No pericardial effusion.
[2024-07-29] MEDS: PNEUMOCOCCAL VACC POLYS 25 MCG/0.5 ML VIAL IM ONE (16:28)
[2024-07-29] MEDS: INFLUENZA TRIVALENT 2024-2025 0.5 ML INJ IM ONE (16:29)
--- NOTE | 2024-07-29 16:32 | DVHDS2 ---
Discharge Summary Date of Admission Jul 27, 2024 at 23:59 Date of Discharge: Jul 29, 2024 Admitting Diagnosis Chest pain, rule out ACS. Labs/Diagnostic Data: Laboratory Results Test 07/28/24 19:58 07/28/24 17:11 07/28/24 11:23 07/27/24 23:21 Hepatitis B Surface Antigen Negative (Negative) Hepatitis C Antibody Negative (Negative) Urine Opiates Screen Neg (NEGATIVE) Urine Fentanyl Screen Neg (NEGATIVE) Urine Barbiturates Screen Neg (NEGATIVE) Urine Phencyclidine Screen Neg (NEGATIVE) Urine Amphetamines Screen Neg (NEGATIVE) Urine Benzodiazepines Screen Neg (NEGATIVE) Urine Cocaine Screen Neg (NEGATIVE) Urine Cannabinoids Screen Neg (NEGATIVE) Lipase 52 U/L (12-53) Plasma/Serum Blood Alcohol < 3.0 mg/dL (<10) Troponin I High Sensitivity 4 ng/L (</=54) Triglycerides Level 403 mg/dL (< 150) Cholesterol Level 277 mg/dL (< 200) LDL Cholesterol mg/dL (< 100) HDL Cholesterol 40 mg/dL (40-59) Thyroid Stimulating Hormone (TSH) 3.97 uIU/mL (0.55-4.78) Test 07/27/24 20:25 White Blood Count 7.0 10^3/uL (4.4-10.8) Red Blood Count 5.05 10^6/uL (4.5-5.90) Hemoglobin 17.1 g/dL (13.5-17.5) Hematocrit 48.1 % (41.0-53.0) Mean Corpuscular Volume 95.2 fL (80.0-100.0) Mean Corpuscular Hemoglobin 33.9 pg (28.0-32.0) Mean Corpuscular Hemoglobin Concent 35.6 g/dL (32.0-36.0) Red Cell Distribution Width 12.6 % (11.8-14.3) Platelet Count 207 10^3/uL (140-450) Mean Platelet Volume 8.7 fL (6.9-10.8) Neutrophils (%) (Auto) 38.3 % (37.0-80.0) Lymphocytes (%) (Auto) 51.0 % (10.0-50.0) Monocytes (%) (Auto) 7.8 % (0.0-12.0) Eosinophils (%) (Auto) 2.4 % (0.0-7.0) Basophils (%) (Auto) 0.5 % (0.0-2.0) Neutrophils # (Auto) 2.7 10 ^3/uL (1.6-8.6) Lymphocytes # (Auto) 3.6 10 ^3/uL (0.4-5.4) Monocytes # (Auto) 0.6 10 ^3/uL (0-1.3) Eosinophils # (Auto) 0.2 10 ^3/uL (0-0.8) Basophils # (Auto) 0 10 ^3/uL (0-0.2) Nucleated Red Blood Cells 0.2 % Prothrombin Time 11.1 sec (9.3-11.8) Prothrombin Time INR 1.05 (0.9-1.15) Activated Partial Thromboplast Time 27.0 SEC (24.5-34.5) Sodium Level 137 mmol/L (136-145) Potassium Level 3.6 mmol/L (3.5-5.1) Chloride Level 103 mmol/L (98-107) Carbon Dioxide Level 29 mmol/L (20-31) Anion Gap 5 (5-15) Blood Urea Nitrogen 10 mg/dL (9-23) Creatinine 0.96 mg/dL (0.700-1.30) Glomerular Filtration Rate Calc 98 mL/min (>90) BUN/Creatinine Ratio 10.4 (10.0-20.0) Serum Glucose 138 mg/dL (74-106) Hemoglobin A1c 6.0 % A1C (<5.7) Calcium Level 9.9 mg/dL (8.7-10.4) Magnesium Level 2.1 mg/dL (1.6-2.6) Total Bilirubin 0.7 mg/dL (0.2-1.0) Aspartate Amino Transferase (AST) 40 U/L (13-40) Alanine Aminotransferase (ALT) 93 U/L (7-40) Alkaline Phosphatase 88 U/L (46-116) B-Type Natriuretic Peptide 1.01 pg/mL (0-100) Total Protein 7.8 g/dL (5.7-8.2) Albumin 4.6 g/dL (3.2-4.8) Other Laboratory Tests 07/27/24 20:25 Brief Hx & Hospital Course: History of Present Illness This is a 49 years old male with past medical history of hyperlipidemia presented to the ED with a chief complaint of intermittent chest pain and shortness of breath for last 4 days prior to this admission. The patient states that chest pain started 4 days ago which was intermittent in nature, heaviness in the chest, 10/10 radiate to the jaw and left shoulder partially relieved by taking aspirin and aggravated with exertion and associated with shortness of breath and cough. He also mentioned for last 4 months he has frequent episodes of chest pain that was partially relieved by taking aspirin. The patient has a strong family history of coronary artery disease. The patient denies headache, blurry of vision, dizziness, diaphoresis, abdominal pain, nausea, vomiting, dysuria, hematuria or any change in bowel and bladder habit. Course of hospitalization: Cardiology consultation was obtained. Patient underwent cardiac stress test which was negative for ischemic changes. Echocardiogram was negative for any acute findings. Patient was found to have severe dyslipidemia. Patient was no longer having chest pain. He will be discharged home and follow up with his PCP in 1-2 weeks. He will be continued on lipid lowering agent, atorvastatin 80 mg q.h.s.. Patient was agreeable with discharge plan. All questions answered. Physical examination General: Alert and Oriented x3. No acute distress. Well-nourished. Obesity Eyes: EOMI. Anicteric. HENT: Moist mucous membranes. Lungs: Clear to auscultation bilaterally. No accessory muscle use. Cardiovascular: Regular rate and rhythm. No murmur. No JVD. Abdomen: Soft, non-tender and non-distended. No palpable masses. Extremities: No edema. Non-tender. Skin: No rashes or lesions. Warm. Neurologic: No focal neurological deficits. CN II-XII grossly intact, but not individually tested. Psychiatric: Cooperative. Appropriate mood and affect. Total time spent with patient discussing and formulating plan of care: 35 minutes. This medical document was created using an electronic medical record system with [employer] dictation system. Although this document has been carefully reviewed, there may still be some phonetic and typographical errors. These areas are purely typographical due to imperfections of the software programs, and do not reflect any compromise in the patient's medical care. Consults/Reason for consult Cardiology: Rule out ACS Condition at Discharge: Fair Final Diagnosis/Problems List Ruled out ACS Secondary Diagnosis: -severe dyslipidemia -accelerated hypertension -chest pain secondary to accelerated hypertension -obesity Discharge Disposition: Home Discharge Instruct/Medications Diet: Cardiac 2g Na,low cholest Activity: No Restrictions, As Tolerated Follow Up/Referral: PCP in 1-2 weeks Medications: Atorvastatin 80mg po qhs 36 Discharge Statement: "Patient was advised to return to the ER or call 911 if any headaches, dizziness, shortness of breath, chest pain, abdominal pain, bleeding, fevers, or worsening of medical condition. Patient was counseled about treatment plan, medications, possible side effects, patientverbalized understanding. All questions were answered to the best of my ability. This discharge took greater then 30 minutes in planning, reviewing documentation, counseling the patient, and discussing with other team members." ASSESSMENT ASSESSMENT Assessment Ruled out ACS Date of Service: Jul 29, 2024 Billing Provider: ANGELINA HAMM NP Common Visit Codes: 49732-[id number] DISCH DAY >30min ANGELINA HAMM NP Jul 29, 2024 16:32
== END 2024-07-29 16:49 | disposition home or self-care (01) | DRG 243 ==
LOC: ER 20:18 → TELE 23:59 → UNDOADMIN 07-28 00:08 → TELE 07-28 00:08 → TELE-WESTW 07-28 18:37
PROVIDERS: ADMIT Nurse Practitioner Acute Care; ATTEND Nurse Practitioner Acute Care
DX: K21.9 Gastro-esophageal reflux disease without esophagitis (principal); E66.9 Obesity, unspecified; E78.5 Hyperlipidemia, unspecified; I10 Essential (primary) hypertension; Z68.31 Body mass index [BMI] 31.0-31.9, adult; R73.03 Prediabetes; Z82.49 Family history of ischemic heart disease and other diseases of the circulatory system
CPT/HCPCS: 36415; 71045; 80053; 80061; 80307; 80320; 83036; 83690; 83735; 83880; 84443; 84484; 85025; 85610; 85730; 86803; 87340; 90656; 93005; 93017; 93306; G0378; J2405